=== PATIENT | female | born 1995 | race Caucasian/White ===

== ENCOUNTER 2018-08-03 11:15 | Emergency (ER) | payer OTHER ==
[~2018-08-03] VITALS: Ht 165.1 cm; Wt 54.4 kg
[~2018-08-03 11:15] MED LIST: IBUPROFEN 600600 M1 PO
[2018-08-03] MEDS ORDERED: TRAMADOL 50 MG50 MG PO (12:45)
[2018-08-03 12:59] VITALS: BP 116/73
== END 2018-08-03 13:04 | disposition home or self-care (01) ==
LOC: ER 11:15
DX: S40.022A Contusion of left upper arm, initial encounter (principal); M79.632 Pain in left forearm; M25.512 Pain in left shoulder; V47.5XXA Car driver injured in collision with fixed or stationary object in traffic accident, initial encounter; Y93.89 Activity, other specified; Y92.89 Other specified places as the place of occurrence of the external cause; Y99.8 Other external cause status